=== PATIENT | female | born 1980 ===

== ENCOUNTER 2024-08-21 05:44 | Day surgery (SDC) | payer OTHER ==
[2024-08-21] MEDS ORDERED: DIPHENHYDRAMINE HCL 50 MG/ML VIAL 1ML IV ONE (08:30)
[2024-08-21] MEDS ORDERED: MEPERIDINE HCL/PF 50 MG/ML VIAL IV ONE (08:30)
[2024-08-21] MEDS ORDERED: MIDAZOLAM HCL/PF 5 MG/ML VIAL IV ONE (08:30)
[2024-08-21] MEDS ORDERED: PROTONIX20 MG PO (08:39)
[2024-08-21] MEDS ORDERED: MIDAZOLAM HCL 2 MG/2 ML VIAL IV ONE (09:15)
== END 2024-08-21 10:25 | disposition home or self-care (01) ==
LOC: AMB-ENDOS 05:44
PROVIDERS: ATTEND Surgery
DX: K29.50 Unspecified chronic gastritis without bleeding (principal); R10.13 Epigastric pain; E66.09 Other obesity due to excess calories; K44.9 Diaphragmatic hernia without obstruction or gangrene